=== PATIENT | female | born 1985 | race American Indian/Alaskan Native ===

== ENCOUNTER 2021-04-22 06:06 | Emergency (ER) | payer SELFPAY ==
[2021-04-22 07:15] VITALS: BP 184/112
[2021-04-22] MEDS ORDERED: dexAMETHasone 20 MG/5 ML VIAL IM ONE (07:35)
[2021-04-22] MEDS ORDERED: KETOROLAC 30 MG/1 ML INJ IM ONE (07:35)
--- NOTE | 2021-04-22 07:40 | Emergency Department Report ---
ED Back Pain/Injury [facility] - General Chief Complaint: Back Pain/Injury Stated Complaint: BACK/LEG PAIN Time Seen by Provider: 04/22/21 07:30 Source: patient Limitations: No Limitations - History of Present Illness Initial Comments: 35-year-old morbid obese -[place] female presents to the emergency room complaining of lower back pain with radiation down her left leg that started on Sunday. Patient denies any injuries. States that she has not been able to sleep or get comfortable as the pain is been intense. States she has tried [id number] medicine without much relief. She denies any past medical history of diabetes but states that she has hypertension. Patient states she has been out of her high blood pressure medicine as she is currently does not have insurance. She denies any headaches shortness of breath chest pain change of vision. MD Complaint: back pain - Related Data Previous Rx's Medication Instructions Recorded Last Taken Type Famotidine [Pepcid] 20 mg PO BID #30 tablet 09/08/19 Unknown Rx Naproxen 500 mg PO Q12H PRN #20 tablet 04/22/21 Unknown Rx Prednisone [predniSONE 5 mg (6-Day 5 mg PO .TAPER #1 04/22/21 Unknown Rx Pack, 21 Tabs)] amLODIPine 10 mg PO DAILY #30 tab 04/22/21 Unknown Rx Allergies Allergy/AdvReac Type Severity Reaction Status Date / Time RY Inhibitors Allergy Angioedema Verified 09/07/19 21:11 ED Review of Systems ROS: Stated complaint: BACK/LEG PAIN Other details as noted in HPI ED Past Medical Hx - Past Medical History Previous Medical History?: Yes Hx Hypertension: Yes - Social History Smoking Status: Current Every Day Smoker Substance Use Type: None - Medications Home Medications: Home Medications Medication Instructions Recorded Confirmed Last Taken Type Famotidine [Pepcid] 20 mg PO BID #30 tablet 09/08/19 Unknown Rx Naproxen 500 mg PO Q12H PRN #20 tablet 04/22/21 Unknown Rx Prednisone [predniSONE 5 mg (6-Day 5 mg PO .TAPER #1 04/22/21 Unknown Rx Pack, 21 Tabs)] amLODIPine 10 mg PO DAILY #30 tab 04/22/21 Unknown Rx ED Physical Exam - General Limitations: No Limitations General appearance: alert, in no apparent distress, obese - Head Head exam: Present: atraumatic, normocephalic - Eye Eye exam: Present: normal appearance - ENT ENT exam: Present: mucous membranes moist - Neck Neck exam: Present: normal inspection, full ROM - Respiratory Respiratory exam: Present: normal lung sounds bilaterally. Absent: respiratory distress - Cardiovascular Cardiovascular Exam: Present: regular rate, normal rhythm. Absent: systolic murmur, diastolic murmur, rubs, gallop - GI/Abdominal GI/Abdominal exam: Present: soft, normal bowel sounds - Extremities Exam Extremities exam: Present: normal inspection - Back Exam Back exam: Present: normal inspection, full ROM, paraspinal tenderness - Expanded Back Exam Expanded Back exam: Sciatic Notch Tenderness: Left, Positive Straight Leg Raise: Left - Neurological Exam Neurological exam: Present: alert, oriented X3, abnormal gait (Secondary to pain) - Psychiatric Psychiatric exam: Present: normal affect, normal mood - Skin Skin exam: Present: warm, dry, intact, normal color. Absent: rash ED Course Vital Signs 04/22/21 07:13 Temperature 98.4 F Pulse Rate 91 H Respiratory 20 Rate Blood Pressure 184/112 [Right] O2 Sat by Pulse 100 Oximetry ED Medical Decision Making - Medical Decision Making 35-year-old morbid obese -[place] female presents to the emergency room complaining of lower back pain with radiation down her left leg that started on Sunday. Patient denies any injuries. States that she has not been able to sleep or get comfortable as the pain is been intense. States she has tried [id number] medicine without much relief. She denies any past medical history of diabetes but states that she has hypertension. Patient states she has been out of her high blood pressure medicine as she is currently does not have insurance. She denies any headaches shortness of breath chest pain change of vision. Toradol 60 mg IM in dexamethasone 10 mg IM. Discussed with patient this is appears to be a sciatica exacerbation. Discussed with patient [id number] modalities exercise. Discussed with patient I will place her on medication to help with her pain handout given for stretches. Discussed with patient I will refill her amlodipine. Critical care attestation.: If time is entered above; I have spent that time in minutes in the direct care of this critically ill patient, excluding procedure time. ED Disposition Clinical Impression: Lumbar back pain with radiculopathy affecting left lower extremity, Hypertension, Severely overweight Disposition: HOME / SELF CARE / HOMELESS Is pt being admited?: No Does the pt Need Aspirin: No Condition: Stable Instructions: Hypertension (ED), Hypertension, Adult, [id number], Radicular Pain, Managing Your Hypertension, Sciatica, Irnq-[id number] Additional Instructions: Please take medications as prescribed. Follow-up with an orthopedic provider as well as a primary care provider. Prescriptions: amLODIPine 10 mg PO DAILY #30 tab Naproxen 500 mg PO Q12H PRN #20 tablet PRN Reason: Pain , Severe (7-10) Prednisone [predniSONE 5 mg (6-Day Pack, 21 Tabs)] 5 mg PO .TAPER #1 Referrals: [facility] [Provider Group] - 3-5 Days JANET LAGOS MD [Staff Physician] - 3-5 Days Forms: Work/School Release Form(ED) Time of Disposition: 07:47
== END 2021-04-22 08:30 | disposition home or self-care (01) ==
LOC: ED 06:06
DX: M54.16 Radiculopathy, lumbar region (principal); I10 Essential (primary) hypertension; F17.200 Nicotine dependence, unspecified, uncomplicated; Z79.899 Other long term (current) drug therapy; Z91.09 Other allergy status, other than to drugs and biological substances
CPT/HCPCS: 96372; 99282; J1100; J1885